=== PATIENT | female | born 1965 | race African-American/Black ===

== ENCOUNTER 2018-05-01 08:00 | Outpatient (CLI) | payer MEDICARE, MEDICAID ==
[2015-11-25 02:38] VITALS: BMI 27.5
[~2018-05-01 08:00] MED LIST: ASPIRIN EC325 M1 PO; CLEOCIN HCL300 MG PO; COLACE100 MG PO; CUBICIN500 MG IV; EFFEXOR100 MG PO; EFFEXOR75 MG PO; ELIQUIS2.5 MG PO; FLAGYL500 MG PO; HEMOCYTE PLUS C1 CAP PO; HYDROCODONE-APA1 TAB PO; KLONOPIN1 MG PO; LATUDA80 MG PO; LOVENOX60 MG/0.6 SC; MAXIPIME 2 GM/D52 G1 IV; MOBIC7.5 MG PO; MS CONTIN15 MG PO; PERCOCET 10/3251 TA1; PERCOCET 10/3251 TA1 PO; SENOKOT-S TABLE1 TAB PO; SEROQUEL100 MG PO; VANCOMYCIN H1 G/VIA1 IV
== END 2018-05-01 12:03 | disposition home or self-care (01) ==
LOC: D.MAMMO 08:00
DX: Z12.31 Encounter for screening mammogram for malignant neoplasm of breast (principal)